=== PATIENT | male | born 1965 | race African-American/Black ===

== ENCOUNTER → 2021-03-28 10:18 | Outpatient (CLI) | payer OTHER, SELFPAY ==
--- NOTE | 2021-03-28 10:20 | DI.RAD.S_ITS ---
PROCEDURE: XR FOOT RT MIN 3V INDICATIONS: 4th toe pain, hammer toe TECHNIQUE: 3 views of the foot were acquired. COMPARISON: None. FINDINGS: Bones: No acute fracture identified. Diffuse hindfoot and midfoot joint degeneration. Plantar and posterior calcaneal spurring. Flexion deformities of the lesser toes incidentally noted. There is severe 1st MTP joint degeneration and hallux valgus appearance although weight-bearing views would be more specific. Soft tissues: No tibiotalar joint effusion. Achilles tendon appears normal. IMPRESSION: Flexion deformities of the lesser toes. Hallux valgus Severe 1st MTP joint degeneration. Plantar and posterior calcaneal spurring Dictated by: Rey Stephens M.D. on 03/28/2021 at 10:38 Approved by: Rey Stephens M.D. on 03/28/2021 at 10:41
--- NOTE | 2021-03-28 10:20 | DI.RAD.S_ITS ---
PROCEDURE: XR FOOT LT MIN 3V INDICATIONS: 4th toe pain, hammer toe TECHNIQUE: 3 views of the foot were acquired. COMPARISON: None. FINDINGS: Bones: No acute fracture identified. Flexion deformities of the lesser toes. Diffuse forefoot osteoarthritis. Plantar and posterior calcaneal spurring. Scattered degenerative subchondral sclerosis and spurring. Moderate 1st MTP joint degeneration. Lucency projecting in the base of the proximal phalanx of the 2nd toe may reflect (likely chronic) fracture deformity although recommend correlation point tenderness since this could be projectional artifact. Soft tissues: No tibiotalar joint effusion. Achilles tendon appears normal. IMPRESSION: Flexion deformities of the lesser toes. Plantar and posterior calcaneal spurring. Diffuse left foot osteoarthritis. Dictated by: Rey Stephens M.D. on 03/28/2021 at 10:35 Approved by: Rey Stephens M.D. on 03/28/2021 at 10:38
== END ==
PROVIDERS: PCP Family Medicine; Referring Provider Physician Assistant; Visit Provider Physician Assistant
DX: M79.674 Pain in right toe(s) (principal); M79.675 Pain in left toe(s); M19.072 Primary osteoarthritis, left ankle and foot; M19.071 Primary osteoarthritis, right ankle and foot; M77.32 Calcaneal spur, left foot; M77.31 Calcaneal spur, right foot; M20.11 Hallux valgus (acquired), right foot; M20.42 Other hammer toe(s) (acquired), left foot; M20.41 Other hammer toe(s) (acquired), right foot
CPT/HCPCS: 73630

== ENCOUNTER → 2022-02-27 09:57 | Outpatient (CLI) | payer OTHER, SELFPAY ==
--- NOTE | 2022-02-27 | DI.RAD.S_ITS ---
PROCEDURE: XR FOOT RT MIN 3V INDICATIONS: RIGHT FOOT PAIN TECHNIQUE: 3 views of the foot were acquired. COMPARISON: [facility], , XR FOOT RT MIN 3V, 03/28/2021, 10:17. FINDINGS: Bones: No fractures or dislocations. No suspicious bony lesions. There is varus angulation of the 1st metatarsal with compensatory valgus angulation of the 1st proximal phalanx reflecting hallux valgus. Associated metatarsophalangeal arthritic changes noted. Enthesophyte noted at the Achilles tendon insertion. Soft tissues: No tibiotalar joint effusion. Achilles tendon appears normal. IMPRESSION: Stable hallux valgus and degenerative changes at the 1st metatarsophalangeal joint. Approved by: Maco Singh M.D. on 02/27/2022 at 12:07
== END ==
PROVIDERS: PCP Family Medicine; Referring Provider Family Medicine; Visit Provider Family Medicine
DX: M79.671 Pain in right foot (principal); M20.11 Hallux valgus (acquired), right foot
CPT/HCPCS: 73630

== ENCOUNTER → 2022-03-01 06:30 | Outpatient (CLI) | payer OTHER, SELFPAY ==
--- NOTE | 2022-03-01 | DI.MRI.S_ITS ---
PROCEDURE: MR FOOT RT WO CON INDICATIONS: RIGHT FOOT PAIN TECHNIQUE: Noncontrast sagittal T1 spin echo and T2 fast spin echo with fat saturation, long-axis T1 spin echo and T2 fast spin echo with fat saturation, short-axis T1 spin echo and T2 fast spin echo with fat saturation through the forefoot. COMPARISON: [facility], CR, XR FOOT RT MIN 3V, 02/27/2022, 9:51. FINDINGS: Image quality: Excellent. Bones and joints: Moderate to severe hallux valgus is again seen. Osteoarthritic changes are noted at 1st MTP joint and articulation between 1st metatarsal head and sesamoids with joint space narrowing and subchondral sclerosis/cyst formation and mild edema. Marrow edema is seen involving distal shaft and head of 2nd metatarsal bone without discrete fracture line concerning for contusion versus stress related changes. No definite stress fracture is seen. No other area of abnormal marrow signal. No suspicious intraosseous lesion. Soft tissues: Soft tissue edema and swelling over dorsum of midfoot is seen particularly over metatarsal bones. The visualized plantar foot muscles demonstrate normal signal and bulk. Visualized flexor and extensor tendons appear intact, without tenosynovitis. The distal insertions of the peroneus brevis and longus tendons appear intact. The principal Lisfranc ligament appears intact. No soft tissue ganglion cysts or bursal fluid collections. Sagittal images shows suggestion of distal plantar plate tear in 2nd MTP joint. IMPRESSION: 1. Moderate hallux valgus. Osteoarthritic changes in 1st MTP joint and articulation between 1st metatarsal head and sesamoids. Marrow edema involving 2nd metatarsal head and distal metatarsal shaft without discrete fracture line suggestive of bony contusion versus stress related changes. No definite stress fracture. No other area of abnormal marrow signal. 2. Forefoot tendons are grossly intact. Lisfranc ligament is intact. 3. Concerning for distal plantar plate tear involving 2nd MTP joint. Dictated by: Linden Wong M.D. on 03/01/2022 at 15:36 Approved by: Linden Wong M.D. on 03/01/2022 at 15:46
== END ==
PROVIDERS: PCP Family Medicine; Referring Provider Family Medicine; Visit Provider Family Medicine
DX: M20.11 Hallux valgus (acquired), right foot; S96.911A Strain of unspecified muscle and tendon at ankle and foot level, right foot, initial encounter; X58.XXXA Exposure to other specified factors, initial encounter
CPT/HCPCS: 73718